=== PATIENT | male | born 1940 | race Caucasian/White ===

== ENCOUNTER → 2018-08-19 | Outpatient (CLI) | payer BC ==
[~2018-08-19] MED LIST: REGADENOSON 0.4 MG/5 ML DISP.SYRIN. IV ONE
--- NOTE | 2018-08-19 10:35 | PCVCIMAG ---
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) 2D Dimensions IVSd: 10.63 (7-11mm)LVOT Diam: 20.00 (18-24mm) LVDd: 48.55 mm PWd: 10.86 (7-11mm)Ascending Ao: 30.30 (22-36mm) LVDs: 29.30 (25-40mm) Left Atrium: 48.73 (27-40mm) Aortic Root: 26.66 mm LV Single Plane 4CH: 61.60 % LV Single Plane 2CH: 63.13 % Biplane EF: 61.1 % Volumes Left Atrial Volume (Systole) Single Plane 4CH: 103.80 mLSingle Plane 2CH: 122.52 mL LA ESV Index: 63.00 mL/m2 Aortic Valve AoV Peak Derick.: 2.07 m/s AO Peak Gr.: 17.10 mmHgLVOT Max P.07 mmHg AO Mean Gr.: 9.10 mmHgLVOT Mean P.21 mmHg AO V2 Mean: 1.42 m/sLVOT Max V: 1.08 m/s AO V2 VTI: 43.66 cmLVOT Mean V: 0.70 m/s TAMAR (VTI): 1.53 [id number] V1 VTI: 22.12 cm TAMAR Vmax: 1.57 cm2 SV (LVOT): 66.70 mL Mitral Valve ERO: 53.36 mm2 E/A Ratio: 1.8 MV Decel. Time: 378.23 ms MV E Max Derick.: 1.70 m/s MV A Derick.: 0.93 m/s MV Max Derick.: 6.26 m/s MR Radius: 1.21 cm MR Als. Derick: 0.36 m/s MR Flow: 333.98 mL/s IVRT: 76.12 ms Pulmonary Valve PV Peak Derick.: 0.90 m/sPV Peak Gr.: 3.22 mmHg AZ End Vmax: 1.57 m/s Tricuspid Valve TR Peak Derick.: 2.65 m/sRAP Estimate: 7.00 mmHg TR Peak Gr.: 28.19 mmHg PA Pressure: 35.00 mmHg Left Ventricle The left ventricle is normal size. There is normal LV segmental wall motion. Borderline concentric left ventricular hypertrophy. Left ventricular systolic function is normal. The left ventricular ejection fraction is within the normal range. LVEF is 60-65%. This study is not technically sufficient to allow evaluation of the LV diastolic function. Right Ventricle The right ventricle is normal size. The right ventricular systolic function is normal. Atria Left atrium is severely dilated. Right atrium is dilated. Aortic Valve Aortic valve is calcified. Trace to mild aortic regurgitation. Mild aortic stenosis. The maximum aortic valve pressure gradient is 17 mmHg and the mean gradient is 9 mmHg. The calculated aortic valve area is 1.6 cm2. Mitral Valve There is mitral annular calcification. Severe mitral regurgitation. No evidence of mitral valve stenosis. 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 Severe prolapse of the posterior mitral valve leaflet. Tricuspid Valve The tricuspid valve is normal in structure. Mild tricuspid regurgitation. The pulmonary artery pressure is 35 mmHg. Pulmonic Valve The pulmonary valve is normal in structure. Mild pulmonic regurgitation. Great Vessels The aortic root is normal in size. The ascending aorta is normal in size. IVC is normal in size and collapses >50% with inspiration. Pericardium There is no pericardial effusion. <Conclusion> The left ventricle is normal size. Borderline concentric left ventricular hypertrophy. Left ventricular systolic function is normal. The right ventricle is normal size. Left atrium is severely dilated. Right atrium is dilated. Mild aortic stenosis. 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 Severe prolapse of the posterior mitral valve leaflet. Severe mitral regurgitation. Mild tricuspid regurgitation. The pulmonary artery pressure is 35 mmHg.
--- NOTE | 2018-08-19 12:08 | PCVCIMAG ---
APPROVED REPORT Imaging Protocol: Rest Tc-99m/Stress Tc-99m 1 day Study performed: 08/19/2018 09:49:16 Indication: Moderate CAD, Pre Op Patient Location: Out-Patient Stress Nurse: Trudy Medel RN, ANDREW Jim Tech:George Bell NMTCB Ht: 5 ft 5 in Wt: 158 lbs BSA: 1.79 m2 HR: 63 bpm BP: 180/87 mmHg BMI: 26.28 Rhythm: Normal Sinus Rhythm Medical History Medical History: Age, HTN Medications: Amlodipine, Synthroid, Lisinopril, Mobic, Prilosec, Zanaflex Allergies: PCN, Sulfa Exercise History: Sedentary Physical Disabilities: Back Resting Data Rest SPECT myocardial perfusion imaging was performed in supine position 45 minutes following the intravenous injection of 12 mCi of Tc-99m Sestamibi. Time of rest injection: 0930 Date: 08/19/2018 Administration Route: IV Administration Site: Right Hand Pharmacologic Stress Pharmacologic stress test was performed by injecting Regadenoson 0.4 mg IV push over 10-15 seconds immediately followed by the intravenous injection of 35.5 mCi of Tc-99m Sestamibi. Time of stress injection: 1045 Date: 08/19/2018 Administration Route: IV Administration Site: Right Hand Gated Stress SPECT was performed 45 minutes after stress injection. The images were gated to evaluate regional wall motion and calculate left ventricular ejection fraction. Stress Test Details Stress Test: Pharmacologic stress testing performed using 0.4 mg of regadenoson per 5 mL given IV over 10 seconds. Reason for pharmacologic stress test: Back issues. HRMax Heart Rate (APMHR): 141 bpm Resting HR: 63 bpmTarget HR (85% APMHR): 119 bpm Max HR Achieved: 78 bpm % of APMHR: 55 Recovery HR: 70 bpm BP Resting BP: 180/87 mmHg Max BP: 158/76 mmHg Recovery BP: 138/67 mmHg ECG Resting ECG: Sinus Rhythm Stress ECG: Sinus Rhythm ST Change: Non-ischemic Arrhythmia: PVC's Recovery ECG: Sinus Rhythm Clinical Reason for Termination: Completed protocol Stress Symptoms: Abdominal pain Exercise duration: min 55 sec Symptoms resolved with caffeine. Study Quality Study: Good Study Data Post stress, the left ventricular ejection was 63%.. SSS: 7 SRS: 2 SDS: 5 TID = 1.04. Perfusion There is a small to medium area of moderately reduced uptake in the basal and mid segment of the lateral wall which is seen on the stress images and normalizes on the resting images. Wall Motion Normal left ventricular wall motion. Nuclear Conclusion ECG Findings: negative for ischemia Clinical Findings: non-diagnostic Nuclear Findings: positive for ischemia Exercise Capacity: not assessed Left Ventricular Function: normal There is a small to medium area of ischemia in the mid to basal lateral wall. There is normal global and segmental LV systolic function.
== END | disposition home or self-care (01) ==
LOC: PCVCIMAG 08:46
PROVIDERS: ATTEND Internal Medicine Cardiovascular Disease
DX: Z01.818 Encounter for other preprocedural examination (principal); I08.3 Combined rheumatic disorders of mitral, aortic and tricuspid valves; I25.10 Atherosclerotic heart disease of native coronary artery without angina pectoris
CPT/HCPCS: 78452; 93017; 93306; A9500; J2785